=== PATIENT | female | born 1945 | race Caucasian/White ===

== ENCOUNTER 2025-01-26 20:37 | Emergency (ER) | payer OTHER, SELFPAY ==
[2025-01-26 20:40] VITALS: BP 147/102
--- NOTE | 2025-01-26 23:29 | ED.GENMED ---
History of Present Illness
General
Chief Complaint: Skin Surface Trauma
Time Seen by Provider: 01/26/25 22:39
History of Present Illness
History of Present Illness:
Event 79-year-old female presents the emergency department for evaluation of a laceration to the left eyebrow. States she tripped and fell while trying to assist her off the ground. When she fell her glasses contacted her face causing a
laceration. She denies a forceful blow to the head. Denies headache or vision changes currently. No nausea or vomiting. Denies LOC. Does not take any blood thinner
Past History
Past History
ED Past Medical History: None
Social History
Tobacco: Non-smoker
Review of Systems
Review of Systems
Allergies reviewed?: Yes
All Other Systems: ROS reviewed and negative except as documented in HPI and ROS
Phy Exam
Physical Exam
Physical Exam:
GEN: Well appearing, NAD, WDWN
HEENT: 2 cm curvilinear laceration to the left eyebrow with no associated hematoma; oral mucosa moist, no scleral icterus, no midline cervical spine tenderness
Cardiac: Regular rate
Lung: No respiratory distress, no tachypnea
MSK: No gross deformity or injuries
Skin: Good color, no pallor or jaundice, no rashes
Neuro: AO x3, moves all extremities freely, cranial nerves II through XII grossly
Psych: Calm, cooperative
Course
Vital Signs
Initial and Last Documented VS:
Initial Vital Signs
Temp Pulse Resp BP Pulse Ox
97.8 F 84 16 147/102 98
01/26/25 20:40 01/26/25 20:40 01/26/25 20:40 01/26/25 20:40 01/26/25 20:40
Last Documented Vital Signs
Temp Pulse Resp BP Pulse Ox
97.8 F 84 16 147/102 98
01/26/25 20:40 01/26/25 20:40 01/26/25 20:40 01/26/25 20:40 01/26/25 20:40
Procedures
Laceration Closure
L eyebrow:
Status of Wound: clean
Size of Wound in cm: 2
Description of Wound Edges: sharp
Preparation: cleaned with saline
Wound exploration: explored to base- no FB
Type of Closure: Dermabond-skin glue
MDM/Problems Addressed
MDM/Problems Addressed:
patient has no focal neurologic deficits and is not on anticoagulants, head trauma was quite minor and thus I see no indication for CT of the head. The wound was repaired at the bedside with glue, supportive care disc
*Critical Care Note
Total Time (30-74mins, 75-104mins- exclusive of procedures): Not Applicable
ED Attending Note
-
Portions of this chart may have been created with voice recognition software.� Occasional wrong word or��sound alike� substitutions may have occurred due to the inherent limitations of voice recognition software.
Discharge Plan
Departure
Patient Disposition: Home (Routine Discharge)
Date of Disposition: 01/26/25
Time of Disposition: 23:31
Patient with high blood pressure during this ER visit?: No
Discharge Problem:
Eyebrow laceration
Instructions: Laceration Repair With Glue (DC)
Referrals:
Santiago Estrada DO [Family Provider, Family Practice]
Activity Restrictions/Additional Instructions:
Keep the wound dry for the remainder of the night then you may wash as you normally would however avoid scrubbing the wound. As the surgical tape strips peeled back you may cut them, do not try to rip them off as this may cause the wound to reopen.
The glue will typically dissolve in 5 to 7 days. Avoid putting any topical ointment such as Neosporin or Vaseline on the wound as this will breakdown the glue
Interventions
Interventions:
*Risk Screen - Suicide Last Done: 01/26/25 20:40
*General Assessment Last Done: 01/26/25 20:40
*Neglect/Abuse Screening Last Done: 01/26/25 20:40
*ED- Fall Risk Assessment Last Done: 01/26/25 23:37
*ED COVID-19 Vaccine History Last Done: 01/26/25 23:37
*Nursing Disposition Last Done: 01/26/25 23:37
ED-Skin Assessment Last Done: 01/26/25 23:36
Discharge Date and Time
Discharge Date/Time: 01/26/25 23:37
Print Language: AZERI
== END 2025-01-26 23:37 | disposition home or self-care (01) ==
LOC: EMR 20:37
PROVIDERS: EMERGENCY PHYSICIAN Student in an Organized Health Care Education/Training Program; FAMILY PHYSICIAN Family Medicine
DX: S01.112A Laceration without foreign body of left eyelid and periocular area, initial encounter (principal); W01.0XXA Fall on same level from slipping, tripping and stumbling without subsequent striking against object, initial encounter; Y93.F9 Activity, other caregiving; Z88.1 Allergy status to other antibiotic agents
CPT/HCPCS: 99282; 12011